=== PATIENT | female | born 1945 | race Caucasian/White ===

== ENCOUNTER → 2024-10-31 | Outpatient (CLI) | payer MEDICARE ==
[2024-10-31 15:32] LABS: Blood Urea Nitrogen 17.2 mg/dL (9.0-27.0); Carbon Dioxide 26.8 mmol/L (21.6-31.8); Chloride 100 mmol/L (96-109); Potassium 4.5 mmol/L (3.5-5.5); Sodium 135 mmol/L (135-145)
[2024-10-31 15:47] LABS: HCT 45.4 % (37.2-46.3); MCH 28.3 pg (27.0-32.0); MCHC 30.8 g/dL (32.0-37.0); MCV 91.7 FL (80.0-97.0); Mean Platelet Volume 10.8 FL (9.5-12.2); NRBC Per 100 WBC 0 X 10*3/uL (0.00-0.01); Platelet Count 288 X 10*3/uL (140-440); RBC 4.95 X 10*6/uL (4.10-5.20); RDW 13.7 % (11.5-14.5); WBC 7.47 X 10*3/uL (4.50-10.00)
== END | disposition home or self-care (01) ==
LOC: LABPAT 10:34
PROVIDERS: ATTEND Internal Medicine Interventional Cardiology
DX: Z01.812 Encounter for preprocedural laboratory examination (principal); I35.0 Nonrheumatic aortic (valve) stenosis
CPT/HCPCS: 36415; 80051; 82565; 84520; 85027

== ENCOUNTER 2024-11-03 06:15 | Day surgery (SDC) | payer MEDICARE ==
[~2024-11-03 06:15] MED LIST: ALPRAZolam 0.5 MG TAB PO PRN; NITROGLYCERIN SL TABS 0.4 MG TAB SUBLINGUAL PRN
[2024-11-03] MEDS: SODIUM CHLORIDE 0.9% 1,000 ML in EMPTY BAG 1 BAG IV SCH (06:49)
[2024-11-03] MEDS: IV FLUID CONTINUATION 1,000 ML IV ONE ×2 (07:39→07:52)
[2024-11-03] MEDS: MIDAZOLAM 2 MG/2 ML VIAL IVP ONE (07:45)
[2024-11-03] MEDS: BENZOCAINE SPRAY 1 EACH MM ONE (07:51)
[2024-11-03] MEDS: HEPARIN SODIUM,PORCINE 10,000 UNIT in SODIUM CHLORIDE 0.9% 1,000 ML IRRIGATION PRN (07:53)
[2024-11-03] MEDS: HEPARIN SODIUM,PORCINE (1 ML) 2,500 UNIT in SODIUM CHLORIDE 0.9% 250 ML IRRIGATION PRN (07:53)
[2024-11-03] MEDS: fentaNYL (PF) 50 MCG/ML 2 ML AMP IVP ONE (07:59)
[2024-11-03] MEDS: LIDOCAINE 1% INJ 10MG/ML (20 ML MDV) SQ ONE (08:00)
--- NOTE | 2024-11-03 08:14 | P.PCN ---
Date of Procedure: 11/03/24 Operative Findings: TRANSESOPHAGEAL ECHOCARDIOGRAM COMPUTER FORENSICS TECHNICIAN: DENAE SONG MD, RPVI INDICATION: Aortic stenosis SEDATION: Conscious sedation COMPLICATION: None LEVEL OF SEDATION Moderate with sedation length of 16 minutes PROCEDURE DESCRIPTION: After obtaining an informed consent, the patient was brought to transesophageal echocardiogram room. Pulse oximetry and heart monitors were attached to the patient. The patient throat was sprayed using lidocaine. The patient was turned into left lateral position. After that a bite guard was placed. After an appropriate conscious sedation was initiated, the transesophageal echocardiogram was advanced through a bite guard into the mid esophagus. A 2-D echocardiogram images, color Doppler images, continuous wave images, pulse-wave images, of various cardiac structure were performed. After that the transesophageal echocardiogram probe was advanced into the stomach and fixed to obtain transgastric view was. The probe was brought into the mid esophagus. Inter-atrial septum was interrogated using 2D images, color Doppler images, and then contrast study. After that transesophageal echocardiogram was withdrawn out and upon withdrawing the descending thoracic aorta all the way up to the arch was evaluated. CONCLUSION: 1. Impaired LV function with EF around 40% with global hypokinesia 2. Moderate to severe mitral regurgitation with severe left atrial enlargement 3. Aortic sclerosis with severe aortic stenosis and mean gradient of 40 mmHg 4. Moderate to severe tricuspid regurgitation 5. Intact interatrial septum 6. Intact left atrial appendage
[2024-11-03] MEDS: HEPARIN SODIUM 1,000 UN/ML (10ML VL) IV ONE (08:35)
[2024-11-03] MEDS: IOPAMIDOL-370 100ML BTL INJ ONE ×2 (08:57→09:24)
[2024-11-03] MEDS: TICAGRELOR 90 MG TAB PO ONE (08:57)
[2024-11-03] MEDS ORDERED: BENZONATATE 100 MG CAP PO PRN (09:15)
[2024-11-03] MEDS ORDERED: ATROPINE SULFATE 0.1 MG/ML 10ML SYRINGE IV PRN (09:15)
[2024-11-03] MEDS ORDERED: MAG HYDROX/AL HYDROX/SIMETH 30 ML CUP PO PRN (09:15)
[2024-11-03] MEDS ORDERED: ZOLPIDEM 5 MG TAB PO PRN (09:15)
[2024-11-03] MEDS ORDERED: RX INFO: IV CONTRAST WAS GIVEN 1 EACH MISC MISCELLANE PRN (09:15)
[2024-11-03] MEDS ORDERED: ALPRAZolam 0.25 MG TAB PO PRN (09:15)
[2024-11-03] MEDS ORDERED: NITROGLYCERIN SL TABS 0.4 MG TAB SUBLINGUAL PRN (09:15)
--- NOTE | 2024-11-03 09:26 | P.PCN ---
Date of Procedure: 11/03/24 Operative Findings: CARDIAC CATHETERIZATION AND PERCUTANEOUS CORONARY INTERVENTION PERFORMING PHYSICIAN: Lauro Rain MD, [facility] PROCEDURE PERFORMED: 1. Selective right and left coronary angiogram 2. Left heart catheterization and right heart catheterization 3. Successful stenting of mid LAD using 4.5 x 23 Xience ASHLEY with an excellent angiographic results with adjunctive use of IVUS and IFR 4. Ultrasound-guided access of the right radial artery INDICATION: Symptomatic 79-year-old female patient with evidence of aortic stenosis by echocardiogram COMPLICATION: None APPROACH: Right radial artery LEVEL OF SEDATION: Moderate with the sedation time off 40 minutes PROCEDURE DESCRIPTION: After obtaining informed consent the patient was brought to the cardiac Instant Powder Supervisor with right radial artery was cannulated using micropuncture technique under ultrasound guidance a micropuncture wire passed easily then I placed a 6 Belarusian 11 cm sheath at the right radial artery and the patient was given 2 mg of verapamil intra-arterial and 5000 units of heparin intravenous. Subsequently right heart catheterization was performed using 6 Belarusian Franklin catheter from the right arm. We did after that left heart catheterization using an AL-1 catheter and straight wire. After that selective right and left coronary angiogram performed using JR4 and JL 4.5 catheters. After that I decided to do an IFR of the LAD with after zeroing the Doppler wire and equalizing between the Dobler wire and the catheter which was she JL 4.5 guiding catheter the left main was engaged and subsequently it was wired with IFR came in to be at 0.87 and at that point I decided to intervene on the LAD. I did wired the LAD using a run- through wire. Intravascular ultrasound was performed and showed a diameter around 4 mm to 4.5 mm not very calcified vessel. Predilatation was performed using 3.5 mm balloon before I deployed 4.5 x 23 mm stent where the stent was positioned under fluoroscopy guidance and deployed under fluoroscopy guidance with final angiogram showed that the stent was not well opposed. I postdilated using 4 mm initially and subsequently 4.5 mm noncompliant balloon. Final angiogram showed excellent angiographic results and the procedure was completed with no complication SELECTIVE CORONARY ANGIOGRAM: The right coronary artery: Large-caliber vessel and a dominant vessel appears to be angiographically normal Left main: Is angiographically normal The left circumflex: Large-caliber vessel nondominant vessel with mild to moderate disease involving the distal portion The left anterior descending artery: Has intermediate to severe lesion involving the midportion documented to be flow-limiting by Doppler wire with IFR of 0.87. HEMODYNAMICS: Pulmonary capillary wedge pressure was 32 mmHg PA pressures were as follows systolic of 60 and diastolic of 25 and mean of 37 mmHg The RV pressures were as follows systolic of 60 mmHg and end-diastolic of 26 mmHg RA pressure was 5 mmHg Cardiac output was 5.09 L/min Aortic valve area was 0.63 cm with an indexed area of 0.33 cm/m CONCLUSION: 1. Severe disease involving the mid LAD documented to be flow-limiting by Doppler wire. I did perform PCI of the LAD as described above 2. Severe aortic stenosis documented by gradient across the valve and also by area as described above. The aortic valve area was 0.63 cm and index area of 0.33 cm/m. The mean aortic valve gradient was 56 mmHg 3. Severe pulmonary hypertension 3. Elevated biventricular filling pressures POSTPROCEDURE MANAGEMENT: 1. Dual antiplatelet therapy using aspirin and Brilinta for at least 6 month 2. Aggressive cholesterol control 3. Follow-up with the patient
[2024-11-03] MEDS: ASPIRIN 325 MG TAB PO ONE (16:29)
[2024-11-03] MEDS: FUROSEMIDE 20 MG TAB PO SCH (16:29)
[2024-11-03 20:20] VITALS: TEMP 97.6
[2024-11-03] MEDS: TICAGRELOR 90 MG TAB PO SCH (20:24)
[2024-11-04 05:14] LABS: African American GFR (CKD) >90 (>60 ml/min/1.73 sqM); Non-African American GFR(CKD) 85 (>60 ml/min/1.73 sqM)
[2024-11-04] MEDS: SODIUM CHLORIDE 0.9% 1,000 ML in EMPTY BAG 1 BAG IV SCH (06:40)
[2024-11-04 07:50] VITALS: BP 117/54; PULSE 78; RESP 16
[2024-11-04] MEDS: ASPIRIN 81 MG PO SCH (08:23)
[2024-11-04] MEDS: ATORVASTATIN 40 MG TAB PO SCH (08:24)
[2024-11-04] MEDS: ALPRAZolam 0.25 MG TAB PO PRN (08:29)
[2024-11-04] MEDS ORDERED: ASPIRIN 81 MG PO SCH (09:00)
[2024-11-04 13:28] VITALS: BMI 32.7
--- NOTE | 2024-11-04 13:44 | P.DS ---
Providers Attending physician: Lauro Rain Consults: 11/03/24 09:15 Consult Physician Routine Consulting Provider: [facility] Consult Reason/Comments: Post Interventional Patient Do you want consulting provider notified?: Already Contacted Primary care physician: Charli Rhodes [facility] Course: This is a 79-year-old female who usually follows in the office with Dr. Zhu. Patient underwent cardiac catheterization yesterday with Dr. Rain with stenting of the mid LAD. Patient also underwent KWABENA revealing impaired LV function with EF around 40% with global hypokinesia, moderate to severe MR with severe left atrial enlargement, aortic sclerosis with severe aortic stenosis with mean gradient 40 mmHg, moderate to severe tricuspid regurgitation, intact intra- atrial septum and intact left atrial appendage. Patient is doing well postprocedure with no complications noted. Patient without complaints of chest pain or shortness of breath. Vital signs are stable. She was deemed stable for discharge home today from a cardiac standpoint. Patient will be continued on dual antiplatelet therapy with the form of aspirin and Brilinta for 12 months. She is to continue statin therapy with LDL goal less than 70. Please see EMR for further hospital course details. Discharge diagnosis #1 coronary artery disease status post stenting of the mid LAD Severe aortic stenosis Nurse practitioner note has been reviewed by physician. Signing provider agrees with the documented findings, assessment, and plan of care documented by TECHNOLOGY APPLICATIONS CONSULTANT as a scribe. Patient Condition at Discharge: Good Plan - Discharge Summary Discharge Rx Participant: No New Discharge Prescriptions: New Ticagrelor [Brilinta] 90 mg PO BID #60 tab Continue Rosuvastatin Calcium 20 mg PO DAILY Benzonatate [Tessalon Perle] 200 mg PO DAILY PRN MDD tx for 7 days PRN Reason: Cough Furosemide [Lasix] 20 mg PO Q3D ALPRAZolam [Xanax] 0.25 mg PO BID PRN PRN Reason: Anxiety Albuterol Inhaler [Ventolin Hfa Inhaler] 1 - 2 puff INHALATION Q6H PRN PRN Reason: Wheezing Aspirin 81 mg PO DAILY Discharge Medication List ALPRAZolam [Xanax] 0.25 mg PO BID PRN 10/27/24 [History] Albuterol Inhaler [Ventolin Hfa Inhaler] 1 - 2 puff INHALATION Q6H PRN 10/27/24 [History] Aspirin 81 mg PO DAILY 12/26/24 [History] Benzonatate [Tessalon Perle] 200 mg PO DAILY PRN MDD tx for 7 days 10/27/24 [History] Furosemide [Lasix] 20 mg PO Q3D 10/27/24 [History] Rosuvastatin Calcium 20 mg PO DAILY 10/27/24 [History] Ticagrelor [Brilinta] 90 mg PO BID #60 tab 11/04/24 [Rx] Follow up Appointment(s)/Referral(s): Lauro Rain MD [STAFF PHYSICIAN] - 11/10/24 10:30 am (Patient of Dr. Zhu- Appointment at the Main Office on with Yara) Patient Instructions/Handouts: *Surgery [facility] - After Heart Catheterization - Windows Security Analyst Instructions, Heart Catheterization (DC), Heart Catheterization (GEN) Activity/Diet/Wound Care/Special Instructions: FOLLOW UP DIRECTED, SOONER FOR WORSENING SYMPTOMS, PROBLEMS OR CONCERNS. NO FLEXING AT THE WRIST OR LIFTING ANYTHING HEAVIER THAN 5 POUNDS FOR 5 DAYS REMOVE ANY DRESSING OVER PUNCTURE SITE AND LEAVE OPEN TO AIR. MAY SHOWER WITH SOAP AND WATER BUT DO NOT SUBMERGE PUNCTURE SITES IN WATER FOR 3 DAYS (including dish cali water) IF SITE BLEEDS, HOLD PRESSURE FOR 10MIN, IF DOESN'T SUBSIDE CALL EMS OR HAVE SOMEONE DRIVE YOU TO ER WATCH EXTREMITY FOR NUMBNESS, COLOR CHANGE, OR CHANGE IN TEMPERATURE TO R ARM/HAND Discharge Disposition: HOME SELF-CARE
== END 2024-11-04 13:03 | disposition home or self-care (01) ==
LOC: CATHCVL 06:15 → 6NMEDSUR 09:18 → CATHCVL 11-04 13:03
PROVIDERS: ATTEND Internal Medicine Interventional Cardiology
DX: I25.10 Atherosclerotic heart disease of native coronary artery without angina pectoris (principal); I08.3 Combined rheumatic disorders of mitral, aortic and tricuspid valves; I27.20 Pulmonary hypertension, unspecified; I49.3 Ventricular premature depolarization; Z79.82 Long term (current) use of aspirin; Z79.899 Other long term (current) drug therapy
CPT/HCPCS: 93312; 93320; 93325; 92978; 93460; 93799; 82565; C9600; C1769 ×5; C1887; C1894; C1751; C1753; C1874; C1725 ×3; J2250; J1644 ×3; J2003; J3010; Q9967

== ENCOUNTER → 2024-11-29 | Outpatient (CLI) | payer MEDICARE ==
[2024-11-29 09:59] LABS: Basophils % (A) 1 %; Eosinophils # (A) 0.2 k/uL (0-0.7); Eosinophils % (A) 2 %; HCT 42.8 % (34.0-46.0); HGB 13.3 gm/dL (11.4-16.0); Lymphocytes # (A) 1.3 k/uL (1.0-4.8); Lymphocytes % (A) 16 %; MCH 28.2 pg (25.0-35.0); MCHC 31.1 g/dL (31.0-37.0); MCV 90.6 fL (80.0-100.0); Mean Platelet Volume 8.1; Monocytes # (A) 0.5 k/uL (0-1.0); Monocytes % (A) 6 %; Neutrophils # (A) 6.1 k/uL (1.3-7.7); Neutrophils % (A) 75 %; Platelet Count 228 k/uL (150-450); RBC 4.72 m/uL (3.80-5.40); RDW 13.1 % (11.5-15.5); WBC 8.1 k/uL (3.8-10.6)
[2024-11-29 10:03] LABS: Appearance,Urine Clear (Clear); Bilirubin,Urine Negative (Negative); Blood,Urine Negative (Negative); Color,Urine Light Yellow; Glucose,Urine (UA) Negative (Negative); Ketones,Urine Negative (Negative); Leukocyte Esterase,Urine Trace (Negative); Nitrite,Urine Negative (Negative); PH, Urine 6.5 (5.0-8.0); Protein,Urine Negative (Negative); RBC,Urine <1 /hpf (0-5); Specific Gravity,Urine 1.019 (1.001-1.035); Squamous Epithelial Cell,Urine 1 /hpf (0-4); Urobilinogen,Urine <2.0 mg/dL (<2.0); WBC,Urine 2 /hpf (0-5)
[2024-11-29 10:09] LABS: Partial Thromboplastin Time 23.8 sec (22.0-30.0); Prothrombin Time 11.1 sec (10.0-12.5)
[2024-11-29 10:14] LABS: ALT 13 U/L (4-34); AST 22 U/L (14-36); African American GFR (CKD) >90 (>60 ml/min/1.73 sqM); Albumin 4.1 g/dL (3.5-5.0); Albumin/Globulin Ratio 1.4; Alkaline Phosphatase 41 U/L (38-126); Anion Gap 5 mmol/L; Blood Urea Nitrogen 20 mg/dL (7-17); Calcium 9.4 mg/dL (8.4-10.2); Carbon Dioxide 32 mmol/L (22-30); Chloride 103 mmol/L (98-107); Globulin 2.9 g/dL; Glucose 114 mg/dL (74-99); Non-African American GFR(CKD) 84 (>60 ml/min/1.73 sqM); Potassium 5.1 mmol/L (3.5-5.1); Sodium 140 mmol/L (137-145)
[2024-11-29 10:21] LABS: NT-Pro-B-Type Natriuretic Pept 4380 pg/mL
--- NOTE | 2024-11-29 11:25 | US ---
EXAMINATION TYPE: US carotid duplex BILAT DATE OF EXAM: 11/29/2024 COMPARISON: NONE CLINICAL INDICATION: Female, 79 years old with history of R55 SYNCOPE; Additional History: .... TECHNIQUE: Grayscale, color Doppler and spectral Doppler evaluation of the bilateral carotid systems and vertebral arteries. Indirect Doppler criteria was utilized. FINDINGS: EXAM MEASUREMENTS: RIGHT: Peak Systolic Velocity (PSV) cm/sec ----- Right CCA: 87.2 ----- Right ICA: 76.7 ----- Right ECA: 56.4 ICA/CCA ratio: 0.9 RIGHT: End Diastole cm/sec ----- Right CCA: 11.9 ----- Right ICA: 23.9 ----- Right ECA: 7.0 LEFT: Peak Systolic Velocity (PSV) cm/sec ----- Left CCA: 45.9 ----- Left ICA: 75.8 ----- Left ECA: 53.6 ICA/CCA ratio: 1.7 LEFT: End Diastole cm/sec ----- Left CCA: 10.3 ----- Left ICA: 26.7 ----- Left ECA: 7.4 VERTEBRALS (direction of flow): Right Vertebral: Antegrade Left Vertebral: Antegrade Rhythm: Normal BIOLOGICAL PHOTOGRAPHER NOTES: Slightly limited exam due to vessel tortuosity Bilateral plaque seen in Bulbs No elevated velocities or significant stenosis seen bilaterally IMPRESSION: No hemodynamically significant internal carotid artery stenosis on either side. Criteria for Assigning % of Stenosis / Diameter reduction (Estimation based on the indirect measurements of the internal carotid artery velocities (ICA PSV). 1. Normal (no stenosis)=ICA PSV < 125 cm/s: ratio < 2.0: ICA EDV<40 cm/s. 2. Less than 50% stenosis=ICA PSV < 125 cm/s: ratio < 2.0: ICA EDV<40 cm/s. 3. 50 to 69% stenosis=ICA PSV of 125 to 230 cm/s: ration 2.0 ? 4.0: ICA EDV 40-100 cm/s. 4. Greater than 70% stenosis to near occlusion= ICA PSV > 230 cm/s: ratio > 4.0: ICA EDV > 100 cm/s. 5. Near occlusion= ICA PSV velocities may be low or undetectable: variable ratio and ICA EDV. 6. Total occlusion=unable to detect flow. [facility], , 11/29/2024 11:23 AM
--- NOTE | 2024-11-29 12:37 | CT ---
EXAMINATION TYPE: CT TAVR Planning DATE OF EXAM: 11/29/2024 COMPARISON: None CLINICAL INDICATION: Female, 79 years old with history of I35.0 NONRHEUMATIC AORTIC (VALVE) STENOSIS; PRE OP TAVR. TECHNIQUE: CT scan of the Neck, chest, abdomen and pelvis is performed with IV contrast; Helical imaging obtaine d through the chest, abdomen and pelvis during arterial phase dynamic administration of radiographic contrast intravenously. CONTRAST: 140ml mL of Isovue 370. CT DLP: 2257.40 mGycm, Automated exposure control for dose reduction was used. FINDINGS: See report from [employer] regarding preprocedural planning NECK AND THYROID: 7 asymmetric positioning and nodularity of the left vocal fold, axial images 26 thr ough 28. Direct visualization recommended. The carotid bifurcations are patent but with moderate athe rosclerotic calcifications on the right and mild on the left. HEART AND PERICARDIUM: Heart mildly enlarged without pericardial effusion. Prominent LAD coronary art melva calcifications. AV Calcification Severity: Moderate to severe ARTERIAL VASCULATURE: The thoracic aorta is normal in course and caliber. There is no evidence of aortic dissection, aneury sm or acute aortic injury. Great arch vessels patent and normal in course and caliber. Mild scattere d atherosclerotic calcifications at the aortic arch and descending thoracic aorta. Scattered mild-to- moderate within the abdominal aorta and common iliac arteries. PULMONARY ARTERIAL VASCULATURE: Large caliber of the main right and left pulmonary arteries up to 3.1 cm suggesting underlying pulmonary arterial hypertension. CHEST: LUNGS: Septal lines throughout along with some mosaic attenuation. LARGE AIRWAYS: Moderate diffuse bronchial wall thickening. PLEURAL: No pleural effusion. MEDIASTINUM AND ALANIS: Some prominent but nonenlarged mediastinal lymph nodes measuring up to 8 mm. SOFT TISSUES/LYMPH NODES: Unremarkable.Normal. MUSCULOSKELETAL: DISH involving the mid to lower thoracic spine. Accentuated mid thoracic kyphosis. ABDOMEN/PELVIS: Please note arterial phase of the imaging limits detailed evaluation of the solid abdominal organs. ABDOMEN LIVER: Unremarkable GALLBLADDER AND BILE DUCTS: Unremarkable. PANCREAS: Unremarkable. SPLEEN: Unremarkable. ADRENAL GLANDS: Unremarkable. KIDNEYS AND URETERS: Bilateral renal cortical cysts measuring up to 2.7 cm. Symmetric excretion of co ntrast from both sites. PELVIS BLADDER: Limited assessment due to extensive metal artifact from the patient's hip replacements. REPRODUCTIVE: Not adequately visualized due to metal artifact.. ABDOMEN & PELVIS STOMACH AND BOWEL: No evidence of bowel obstruction. Sigmoid diverticulosis. No pericolonic inflammat ory changes seen. PERITONEUM/RETROPERITONEUM: No evidence of pneumoperitoneum or free fluid. VASCULATURE: No evidence of aortic aneurysm. MUSCULOSKELETAL: Moderate to severe spondylotic changes lumbar spine. LYMPH NODES: No gross evidence for lymphadenopathy. SOFT TISSUE/ABDOMINAL WALL: Unremarkable Other Lines/Tubes/Devices/Hardware: None IMPRESSION: 1. Moderate to severe calcifications of the aortic valve. 2. Some asymmetry in nodularity to the left vocal fold. Recommend direct visualization to exclude a polyp or neoplasm. 3. Mild cardiomegaly, pulmonary arterial hypertension, and scattered septal lines. Correlate to excl ude mild fluid overload. 4. Sigmoid diverticulosis. 5. DISH mid and lower thoracic spine. Moderate to advanced spondylotic change throughout the lumbar spine. 6. See report from [email or web address] regarding preprocedural planning [facility], , 11/29/2024 12:35 PM
--- NOTE | 2024-11-29 13:07 | XR ---
EXAMINATION TYPE: XR chest 2V DATE OF EXAM: 11/29/2024 1:02 PM COMPARISON: None CLINICAL INDICATION: Female, 79 years old with history of PRE SURGICAL TESTING - TAVR PT., , TECHNIQUE: PA and lateral views FINDINGS: Heart mildly enlarged. Diffuse interstitial opacities without jai consolidation or pleural effusion . IMPRESSION: Correlate for CHF with pulmonary vascular congestion. [facility], Workstation: [id number], 11/29/2024 1:05 PM
[2024-11-29 17:50] LABS: Hepatitis A Antibody IgM Nonreactive (Nonreactive); Hepatitis C IgG Antibody Nonreactive (Nonreactive)
[2024-11-29 17:51] LABS: Hepatitis B Core IgM Nonreactive (Nonreactive); Hepatitis B Surface Antigen Nonreactive (Nonreactive)
[2024-11-29 19:53] LABS: Chol/HDL Ratio 2.15 Ratio; LDL Cholesterol,Calculated 60.5 mg/dL (0.0-131.0); VLDL Calculation 14.42 mg/dL (5.00-40.00)
== END | disposition home or self-care (01) ==
LOC: LABWHC1 09:06
PROVIDERS: ATTEND Thoracic Surgery (Cardiothoracic Vascular Surgery)
DX: Z01.818 Encounter for other preprocedural examination (principal); I35.0 Nonrheumatic aortic (valve) stenosis; I35.1 Nonrheumatic aortic (valve) insufficiency; E78.5 Hyperlipidemia, unspecified; E87.8 Other disorders of electrolyte and fluid balance, not elsewhere classified; E07.9 Disorder of thyroid, unspecified; E11.9 Type 2 diabetes mellitus without complications; N28.9 Disorder of kidney and ureter, unspecified; R58 Hemorrhage, not elsewhere classified; R35.0 Frequency of micturition; R55 Syncope and collapse; Z79.01 Long term (current) use of anticoagulants; Z79.899 Other long term (current) drug therapy
CPT/HCPCS: 83880; 80061; 80053; 80074; 84443; 83735; 85025; 85610; 85730; 81001; 87086; 83036; 71046; 93880; 71275; 36415 ×2; 74174; Q9967

== ENCOUNTER 2024-12-24 10:12 | Emergency (ER) | payer MEDICARE ==
--- NOTE | 2024-12-24 11:28 | ED ---
SOB HPI - General Chief Complaint: Shortness of Breath Stated Complaint: Cough,SOB Time Seen by Provider: 12/24/24 11:25 Source: patient, family, RN notes reviewed Mode of arrival: ambulatory - History of Present Illness Initial Comments: Patient is a 79-year-old female presented to the ER for evaluation of cough and congestion Patient reports she is scheduled to have aortic valve replacement on Thursday with . She states for the past 48 to 72 hours she has had a productive cough with yellow phlegm and congestion along with runny nose. Patient also reports mild fevers. Patient states she will cough so hard it makes her short of breath. She denies any chest pain, dizziness, lightheadedness, nausea, vomiting. Patient states she was seen by PCP yesterday and started on Augmentin. She has taken 2 doses of this. Patient denies home O2 use, peripheral edema, history of COPD/asthma, heart failure or smoking. She has not tried any medications [id number]. No other complaints at this time. - Related Data Home Medications Medication Instructions Recorded Confirmed ALPRAZolam [Xanax] 0.25 mg PO BID PRN 10/27/24 12/20/24 Albuterol Inhaler [Ventolin Hfa 1 - 2 puff INHALATION Q6H PRN 10/27/24 12/20/24 Inhaler] Aspirin 81 mg PO DAILY 10/27/24 12/20/24 Benzonatate [Tessalon Perle] 200 mg PO DAILY PRN 10/27/24 12/20/24 Furosemide [Lasix] 20 mg PO Q3D 10/27/24 12/20/24 Rosuvastatin Calcium 20 mg PO DAILY 10/27/24 12/20/24 Clopidogrel [Plavix] 75 mg PO DAILY 12/20/24 12/20/24 carvediloL [Coreg] 3.125 mg PO BID 12/20/24 12/20/24 lisinopriL [Zestril] 2.5 mg PO DAILY 12/20/24 12/20/24 Allergies Allergy/AdvReac Type Severity Reaction Status Date / Time No Known Allergies Allergy Verified 12/24/24 10:34 Review of Systems ROS Statement: Those systems with pertinent positive or pertinent negative responses have been documented in the HPI. ROS Other: All systems not noted in ROS Statement are negative. Past Medical History Past Medical History: Heart Failure, Pneumonia Additional Past Medical History / Comment(s): admitted to [facility] on 10-15-24 thru 10-17-24-Covid testing neg,SOB History of Any Multi-Drug Resistant Organisms: None Reported Past Surgical History: Appendectomy, Heart Catheterization With Stent, Hysterectomy, Joint Replacement Additional Past Surgical History / Comment(s): jemima hip replacement Past Anesthesia/Blood Transfusion Reactions: No Reported Reaction Additional Past Anesthesia/Blood Transfusion Reaction / Comment(s): no hx blood transfusioon Past Psychological History: Anxiety Smoking Status: Never smoker Past Alcohol Use History: None Reported Past Drug Use History: None Reported - Past Family History Mother Family Medical History: No Reported History General Exam Limitations: no limitations General appearance: alert, in no apparent distress ENT exam: Present: normal exam, normal oropharynx, mucous membranes moist, TM's normal bilaterally Respiratory exam: Present: normal lung sounds bilaterally. Absent: respiratory distress, wheezes, rales, rhonchi, stridor Cardiovascular Exam: Present: regular rate, normal rhythm, normal heart sounds. Absent: systolic murmur, diastolic murmur, rubs, gallop, clicks Extremities exam: Present: normal inspection, full ROM, normal capillary refill. Absent: tenderness, pedal edema, joint swelling, calf tenderness Neurological exam: Present: alert, oriented X3, CN II-XII intact Skin exam: Present: warm, dry, intact, normal color. Absent: rash Course Vital Signs 12/24/24 12/24/24 12/24/24 10:28 11:43 12:07 Temperature 98.8 F 99.7 F H Pulse Rate 100 89 Respiratory 20 18 Rate Blood Pressure 137/79 O2 Sat by Pulse 95 Oximetry 12/24/24 12/24/24 12:16 12:30 Temperature 100.1 F H Pulse Rate 94 85 Respiratory 18 18 Rate Blood Pressure 128/74 O2 Sat by Pulse 95 Oximetry Medical Decision Making - Medical Decision Making Was pt. sent in by a medical professional or institution (, PA, PAPER SUPERVISOR, urgent care, hospital, or senior care...) When possible be specific @ -No Did you speak to anyone other than the patient for history (EMS, parent, family, police, friend...)? What history was obtained from this source @ -Patient's daughter, at bedside, aiding in HPI and past medical history. Did you review nursing and triage notes (agree or disagree)? Why? @ -I reviewed and agree with nursing and triage notes Were old charts reviewed (outside hosp., previous admission, EMS record, old EKG, old radiological studies, urgent care reports/EKG's, senior care records)? Report findings @ -No old charts were reviewed Differential Diagnosis (chest pain, altered mental status, abdominal pain women, abdominal pain men, vaginal bleeding, weakness, fever, dyspnea, syncope, hea dache, dizziness, GI bleed, back pain, seizure, CVA, palpatations, mental health, musculoskeletal)? @ -Differential Dyspnea:Coronary syndrome, arrhythmia, tamponade, asthma, COPD, pulmonary embolism, pneumonia, pneumothorax, pulmonary effusion, anaphylaxis, diabetic ketoacidosis, flailed chest, pulmonary contusion, diaphragmatic rupture, anemia, neuromuscular, this is not meant to be an all-inclusive list. EKG interpreted by me (3pts min.). @ -As above X-rays interpreted by me (1pt min.). @ -CXR interpreted by me negative for focal consolidations, pneumothorax or pleural effusions. CT interpreted by me (1pt min.). @ -None done U/S interpreted by me (1pt. min.). @ -None done What testing was considered but not performed or refused? (CT, X-rays, U/S, labs)? Why? @ -None What meds were considered but not given or refused? Why? @ -Tamiflu considered but patient is outside 48 hour symptom onset window. Did you discuss the management of the patient with other professionals (leonidas nixon i.e. , PA, PAPER SUPERVISOR, lab, RT, psych nurse, social media senior associate, poultry picker, teacher, commissioned defence force officer, immigration case worker)? Give summary @ -No Was smoking cessation discussed for >3mins.? @ -No Was critical care preformed (if so, how long)? @ -No Were there social determinants of health that impacted care today? How? (Homelessness, low income, unemployed, alcoholism, drug addiction, transportation, low edu. Level, literacy, decrease access to med. care, intermediate, rehab)? @ -No Was there de-escalation of care discussed even if they declined (Discuss DNR or withdrawal of care, Hospice)? DNR status @ -No What co-morbidities impacted this encounter? (DM, HTN, Smoking, COPD, CAD, Cancer, CVA, ARF, Chemo, Hep., AIDS, mental health diagnosis, sleep apnea, morbid obesity)? @ -None Was patient admitted / discharged? Hospital course, mention meds given and route, prescriptions, significant lab abnormalities, going to OR and other pertinent info. @ -Discharge. 79-year-old female presented to the ER for evaluation of cough and congestion. Upon rooming, history and physical exam completed. Patient with a temperature of 99.7F vitals otherwise within acceptable limits. Patient no signs of acute distress nontoxic-appearing. Laboratory studies obtained unimpressive. Influenza A positive. Chest x-ray negative. Patient given Tylenol for fever control in the ER. Patient also received DuoNeb as she was complaining of cough making her short of breath. She does report improvement of symptoms after this. Patient is stable for discharge at this time. Strict return parameters discussed. Patient discharged in stable condition with follow- up with PCP. Patient verbally expressed understanding and agreement with care plan. Case discussed with ED attending, Dr. Bell. Undiagnosed new problem with uncertain prognosis? @ -No Drug Therapy requiring intensive monitoring for toxicity (Heparin, Nitro, Insulin, Cardizem)? @ -No Were any procedures done? @ -No Diagnosis/symptom? @ -Influenza A/Acute viral sinusitis Acute, or Chronic, or Acute on Chronic? @ -Acute Uncomplicated (without systemic symptoms) or Complicated (systemic symptoms)? @ -Uncomplicated Side effects of treatment? @ -No Exacerbation, Progression, or Severe Exacerbation? @ -No Poses a threat to life or bodily function? How? (Chest pain, [place], [place], pneumonia, PE, COPD, DKA, ARF, appy, cholecystitis, CVA, Diverticulitis, Homicidal, Suicidal, threat to staff... and all critical care pts) @ -Low at this time - Lab Data Result diagrams: 12/24/24 11:33 12/24/24 11:33 Lab Results 12/24/24 12/24/24 12/24/24 Range/Units 10:36 11:33 11:33 WBC 6.5 (3.8-10.6) k/uL RBC 4.36 (3.80-5.40) m/uL Hgb 12.5 (11.4-16.0) gm/dL Hct 39.0 (34.0-46.0) % MCV 89.4 (80.0-100.0) fL MCH 28.7 (25.0-35.0) pg MCHC 32.1 (31.0-37.0) g/dL RDW 13.6 (11.5-15.5) % Plt Count 153 (150-450) k/uL MPV 8.2 Neutrophils % 88 % Lymphocytes % 4 % Monocytes % 5 % Eosinophils % 2 % Basophils % 0 % Neutrophils # 5.7 (1.3-7.7) k/uL Lymphocytes # 0.3 L (1.0-4.8) k/uL Monocytes # 0.3 (0-1.0) k/uL Eosinophils # 0.1 (0-0.7) k/uL Basophils # 0.0 (0-0.2) k/uL Sodium 136 L (137-145) mmol/L Potassium 4.3 (3.5-5.1) mmol/L Chloride 103 (98-107) mmol/L Carbon Dioxide 25 (22-30) mmol/L Anion Gap 8 mmol/L BUN 16 (7-17) mg/dL Creatinine 0.52 (0.52-1.04) mg/dL Est GFR (CKD-EPI)AfAm >90 (>60 ml/min/1.73 sqM) Est GFR (CKD-EPI)NonAf >90 (>60 ml/min/1.73 sqM) Glucose 136 H (74-99) mg/dL Plasma Lactic Acid Eduardo (0.7-2.0) mmol/L Calcium 9.0 (8.4-10.2) mg/dL Total Bilirubin 0.9 (0.2-1.3) mg/dL AST 27 (14-36) U/L ALT 15 (4-34) U/L Alkaline Phosphatase 33 L (38-126) U/L Total Protein 6.7 (6.3-8.2) g/dL Albumin 3.9 (3.5-5.0) g/dL Influenza Type A (PCR) Detected A (Not Detectd) Influenza Type B (PCR) Not Detected (Not Detectd) RSV (PCR) Not Detected (Not Detectd) SARS-CoV-2 (PCR) Not Detected (Not Detectd) 12/24/24 Range/Units 11:33 WBC (3.8-10.6) k/uL RBC (3.80-5.40) m/uL Hgb (11.4-16.0) gm/dL Hct (34.0-46.0) % MCV (80.0-100.0) fL MCH (25.0-35.0) pg MCHC (31.0-37.0) g/dL RDW (11.5-15.5) % Plt Count (150-450) k/uL MPV Neutrophils % % Lymphocytes % % Monocytes % % Eosinophils % % Basophils % % Neutrophils # (1.3-7.7) k/uL Lymphocytes # (1.0-4.8) k/uL Monocytes # (0-1.0) k/uL Eosinophils # (0-0.7) k/uL Basophils # (0-0.2) k/uL Sodium (137-145) mmol/L Potassium (3.5-5.1) mmol/L Chloride (98-107) mmol/L Carbon Dioxide (22-30) mmol/L Anion Gap mmol/L BUN (7-17) mg/dL Creatinine (0.52-1.04) mg/dL Est GFR (CKD-EPI)AfAm (>60 ml/min/1.73 sqM) Est GFR (CKD-EPI)NonAf (>60 ml/min/1.73 sqM) Glucose (74-99) mg/dL Plasma Lactic Acid Eduardo 1.6 (0.7-2.0) mmol/L Calcium (8.4-10.2) mg/dL Total Bilirubin (0.2-1.3) mg/dL AST (14-36) U/L ALT (4-34) U/L Alkaline Phosphatase (38-126) U/L Total Protein (6.3-8.2) g/dL Albumin (3.5-5.0) g/dL Influenza Type A (PCR) (Not Detectd) Influenza Type B (PCR) (Not Detectd) RSV (PCR) (Not Detectd) SARS-CoV-2 (PCR) (Not Detectd) - EKG Data -: EKG Interpreted by Me EKG Comments: EKG taken at 12: 01 showing a sinus rhythm with frequent PVCs. Ventricular rate 95, MT interval 152, QRS duration 99, QT/QTc 336/389 - Radiology Data Radiology results: report reviewed, image reviewed Disposition Clinical Impression: Influenza A, Acute viral sinusitis Disposition: HOME SELF-CARE Condition: Stable Instructions (If sedation given, give patient instructions): Influenza (ED) Additional Instructions: Follow-up with PCP. Return to the ER for any new or worsening concerns Is patient prescribed a controlled substance at d/c from ED?: No Referrals: Charli Rhodes MD [Primary Care Provider] - 1-2 days Time of Disposition: 12:15
--- NOTE | 2024-12-24 11:29 | XR ---
EXAMINATION TYPE: XR chest 2V DATE OF EXAM: 12/24/2024 11:05 AM COMPARISON: 11/29/2024 CLINICAL INDICATION: Female, 79 years old with history of cough and fever and sob, TECHNIQUE: XR chest 2V view(s) obtained. FINDINGS: The heart size is enlarged. The pulmonary vasculature is normal. The lungs are clear. Spondylosis is to thoracic spine IMPRESSION: 1. No acute pulmonary process. 2. Cardiomegaly [facility], , 12/24/2024 11:27 AM
[2024-12-24 11:43] LABS: Basophils % (A) 0 %; Eosinophils # (A) 0.1 k/uL (0-0.7); Eosinophils % (A) 2 %; HGB 12.5 gm/dL (11.4-16.0); Lymphocytes # (A) 0.3 k/uL (1.0-4.8); Lymphocytes % (A) 4 %; MCH 28.7 pg (25.0-35.0); MCHC 32.1 g/dL (31.0-37.0); MCV 89.4 fL (80.0-100.0); Mean Platelet Volume 8.2; Monocytes # (A) 0.3 k/uL (0-1.0); Monocytes % (A) 5 %; Neutrophils # (A) 5.7 k/uL (1.3-7.7); Neutrophils % (A) 88 %; Platelet Count 153 k/uL (150-450); RBC 4.36 m/uL (3.80-5.40); RDW 13.6 % (11.5-15.5); WBC 6.5 k/uL (3.8-10.6)
[2024-12-24 11:48] LABS: Influenza A Detected (Not Detectd); Influenza B Not Detected (Not Detectd); RSV Not Detected (Not Detectd)
[2024-12-24] MEDS: ACETAMINOPHEN TAB 325 MG TAB PO STA (11:48)
[2024-12-24 11:56] LABS: ALT 15 U/L (4-34); AST 27 U/L (14-36); African American GFR (CKD) >90 (>60 ml/min/1.73 sqM); Albumin 3.9 g/dL (3.5-5.0); Alkaline Phosphatase 33 U/L (38-126); Anion Gap 8 mmol/L; Blood Urea Nitrogen 16 mg/dL (7-17); Carbon Dioxide 25 mmol/L (22-30); Chloride 103 mmol/L (98-107); Glucose 136 mg/dL (74-99); Non-African American GFR(CKD) >90 (>60 ml/min/1.73 sqM); Potassium 4.3 mmol/L (3.5-5.1); Sodium 136 mmol/L (137-145); Total Bilirubin 0.9 mg/dL (0.2-1.3); Total Protein 6.7 g/dL (6.3-8.2)
[2024-12-24] MEDS: IPRATROPIUM-ALBUTEROL 3 ML NEB INHALATION STA (12:07)
[2024-12-24 12:10] VITALS: RESP 18
[2024-12-24 12:34] VITALS: BP 128/74; PULSE 85; TEMP 100.1
== END 2024-12-24 12:40 | disposition home or self-care (01) ==
LOC: EC 10:12
DX: J10.1 Influenza due to other identified influenza virus with other respiratory manifestations (principal); J01.90 Acute sinusitis, unspecified
CPT/HCPCS: 36415; 71046; 80053; 83605; 85025; 87636; 93005; 94640; 99285

== ENCOUNTER 2024-12-28 08:00 | Inpatient (IN) | payer MEDICARE ==
[~2024-12-28 08:00] MED LIST changes: -ALPRAZolam 0.5 MG TAB PO PRN; +ASPIRIN 325 MG TAB PO ONE; +ATORVASTATIN 10 MG TAB PO ONE; +CLEVIDIPINE BUTYRATE 25 MG in EMPTY BAG 1 BAG IV PRN; +CLOPIDOGREL 75 MG TAB PO ONE; +ELECTROLYTE-A SOLUTION 1,000 ML with POTASSIUM CHLORIDE 100 MEQ, MAGNESIUM SULFATE 16 M... IV PRN; +INSULIN REGULAR 100 UNIT in SODIUM CHLORIDE 0.9% 100 ML IV PRN; +LACTATED RINGERS 1,000 ML IV SCH; +METOPROLOL TARTRATE 25 MG TAB PO ONE; -NITROGLYCERIN SL TABS 0.4 MG TAB SUBLINGUAL PRN; +NITROGLYCERIN-D5W PMX 25 MG/250 ML BTL IV PRN; +PROTAMINE SULFATE 250 MG in EMPTY BAG 1 BAG IV PRN; +SODIUM CHLORIDE 0.9% 500 ML 500 ML INTRAARTER PRN; +TRANEXAMIC ACID 2,000 MG in SODIUM CHLORIDE 0.9% 80 ML IV PRN
[2025-01-11] MEDS ORDERED: INSULIN REGULAR 100 UNIT in SODIUM CHLORIDE 0.9% 100 ML IV PRN (06:00)
[2025-01-11] MEDS ORDERED: TRANEXAMIC ACID 2,000 MG in SODIUM CHLORIDE 0.9% 80 ML IV PRN (06:00)
[2025-01-11] MEDS ORDERED: ELECTROLYTE-A SOLUTION 1,000 ML with POTASSIUM CHLORIDE 100 MEQ, MAGNESIUM SULFATE 16 M... IV PRN (06:00)
[2025-01-11] MEDS ORDERED: CLEVIDIPINE BUTYRATE 25 MG in EMPTY BAG 1 BAG IV PRN (06:00)
[2025-01-11] MEDS ORDERED: NITROGLYCERIN-D5W PMX 25 MG/250 ML BTL IV PRN (06:00)
[2025-01-11] MEDS ORDERED: PROTAMINE SULFATE 250 MG in EMPTY BAG 1 BAG IV PRN (06:00)
[2025-01-11] MEDS ORDERED: SODIUM CHLORIDE 0.9% 500 ML 500 ML INTRAARTER PRN (06:00)
[2025-01-11 06:28] LABS: Glucose,Whole Blood 112 mg/dL (70-110)
[2025-01-11] MEDS: ASPIRIN 325 MG TAB PO ONE (07:06)
[2025-01-11] MEDS: ATORVASTATIN 10 MG TAB PO ONE (07:07)
[2025-01-11] MEDS: CLOPIDOGREL 75 MG TAB PO ONE (07:07)
[2025-01-11] MEDS: METOPROLOL TARTRATE 25 MG TAB PO ONE (07:07)
[2025-01-11] MEDS: LACTATED RINGERS 1,000 ML IV SCH (07:09)
[2025-01-11] MEDS: IV FLUID CONTINUATION 1,000 ML IV ONE ×2 (07:10→10:07)
[2025-01-11] MEDS ORDERED: MIDAZOLAM 2 MG/2 ML VIAL ONE (07:45)
[2025-01-11] MEDS ORDERED: HEPARIN SODIUM,PORCINE 10,000 UNIT/ML 1 ML VIAL ONE (07:45)
[2025-01-11] MEDS ORDERED: DEXMEDETOMIDINE/0.9% NACL(PMX) 400 MCG/100 ML IV ONE (07:45)
[2025-01-11] MEDS ORDERED: fentaNYL (PF) 50 MCG/ML 2 ML AMP ONE (07:45)
[2025-01-11] MEDS ORDERED: PROTAMINE SULFATE 10 MG/ML 5 ML VIAL ONE (07:45)
[2025-01-11] MEDS: LIDOCAINE 1% INJ 10MG/ML (20 ML MDV) SQ ONE (08:26)
[2025-01-11] MEDS: IOPAMIDOL-370 100ML BTL INJ ONE (09:03)
--- NOTE | 2025-01-11 09:35 | P.OP ---
Date of Procedure: 01/11/25 Preoperative Diagnosis: Symptomatic severe calcific aortic stenosis Postoperative Diagnosis: Same Procedure(s) Performed: Percutaneous transfemoral transcatheter aortic valve replacement via right femoral arterial approach with 26 mm Escoto NITZA 3 valve prosthesis Implants: Escoto Nitza 3 valve prosthesis Anesthesia: GETA Surgeon: Orville Silverio (Cardiovascular surgeon) Black Jack Dealer #1: Lauro Rain (sustainable design coordinator) [employer] [place] Dealer #2: James Quinteros (Physician assistant fitness manager) Estimated Blood Loss (ml): 20 IV fluids (ml): 1,000 Urine output (ml): 0 Pathology: none sent Condition: stable Disposition: PACU Indications for Procedure: 79-year-old obese female with progressive dyspnea. She has longstanding history of COPD. She was found to have significant LAD coronary artery disease as well as severe aortic valvular stenosis. She underwent intervention on the left anterior coronary artery with successful stenting and had minimal improvement in her symptomatology and following this her dyspnea continued to progress. Transcatheter aortic valve replacement was recommended in the high risk valve clinic and she was scheduled but delayed due to acute an episode of influenza. She was electively admitted for procedure at this time. Operative Findings: Femoral access was good. The valve was crossed without too much difficulty. There was a significant gradient across the valve. Valve was deployed without difficulty. There were no evidence of aortic insufficiency on either root injection or transthoracic echocardiography. Valve appeared to be well deployed and well-rounded. There was no evidence of pericardial effusion. Coronary perfusion was maintained. Both groin sealed up without difficulty completion angiography was acceptable. Description of Procedure: Patient was brought to the catheterization laboratory and placed supine on the operating table. She was appropriately positioned prepped and draped. IV sedation was administered. 1% lidocaine was injected in both groins. Bilateral femoral arterial and left femoral venous access was obtained under ultrasound gu idance. In the left femoral artery a long 6 Prydeinig sheath was placed and a pigtail advanced through this into the noncoronary sinus of Valsalva. The left femoral vein and a long 8 Prydeinig sheath was placed and through this a TVP was advanced into the right ventricle and tested. Right femoral artery a 7 Prydeinig sheath was placed and then 2 Perclose devices were placed and an 8 Prydeinig sheath was placed. This was upsized to a 14 Prydeinig E sheath over a stiff wire. Patient was systemically heparinized and ACT is maintained greater than 250. The valve was crossed from the right femoral approach and a pigtail catheter positioned in the apex of the ventricle. Transvalvular gradients were measured. Safari wire was placed at the apex of the ventricle. 26 mm Escoto NITZA 3 ultra had been loaded on the back table and was brought up on the field. It was advanced over the safari wire through the E sheath and into the descending thoracic aorta. The balloon was pulled back into the valve stent. It was then curved around the aortic arch and advanced across the aortic valve. The pusher was pulled back and the valve was appropriately positioned for deployment. The valve was deployed under rapid ventricular pacing with deployment levels of 20 and 80. Valve deployment system was pulled back into the descending thoracic aorta. The pigtail was pulled back into the root of the aorta and root angiography was performed with findings as noted above. Surface echocardiography was performed. Heparin was reversed with protamine. Valve deployment system was pulled out. The safari wire was exchanged for a J-wire and the 14 Prydeinig sheath removed and the 2 Perclose devices sealed the femoral artery well. Completion angiography was normal. Left femoral sheaths were removed and controlled with direct pressure. Patient was transferred to recovery in stable condition.
--- NOTE | 2025-01-11 09:43 | P.PCN ---
Date of Procedure: 01/11/25 Operative Findings: TRANSCATHETER AORITC VALVE REPLACEMENT OPERATIVE REPORT PROCEDURE PERFORMED: 1. Percutaneous Aortic Valve Implantation using a 26 mm Escoto DONNIE valve 2. Transthoracic echocardiogram was performed as well 3. Ultrasound guided access and repair of bilateral femoral artery access site by Perclose closure device on the right and Angio-Seal on the left 4. Placement of temporary pacemaker wire. 5. Aortic root angiography INDICATIONS: 1. 79 year-old with a history of severe symptomatic aortic valve stenosis. The patient was experiencing shortness of breath consistent with NYHA class II PERFORMING PHYSICIANS: 1. Lauro Rain MD Interventional Cardiology. 2. Orville Silverio MD, Cardiothoracic Surgeon. SEDATION: General anesthesia provided by anesthesia, see separate note APPROACH: Bilateral femoral artery via percutaneous approach PROCEDURE DESCRIPTION: The patient was discussed at valve clinic with multidisciplinary approach with cardiothoracic surgeon as well as hall tender and thought better treated with TAVR. Risks, benefits, and alternatives of the procedure had been explained to the patient who understood the risks and agreed to proceed. After consents were obtained, patient was brought to the transcatheter aortic valve implantation room in the cardiac mason tender restoration labor and general anesthesia was provided by the anesthesiologist (see separate report). Once full body sterile prep was performed, the left common femoral vein was cannulated using micropuncture techn ique under ultrasound guidance a micropuncture wire passed easily then a place a 6 Colombian 23 cm sheath at the left common femoral vein. Subsequently the sheath was flushed and secured. After that I did advance under fluoroscopy guidance a balloontipped temporary pacemaker to the right ventricle where the pacer was also secured after the balloon was deflated. Pacing threshholds were checked and deemed appropriate. Next the left femoral artery waw accessed using a modified Seldinger technique, ultrasound guidance and micropuncture technique. A 6 Colombian Rabi sheath was placed in the left femoral artery. Next, a 6-Colombian pigtail catheter was advanced into the aorta and positioned in the aortic root, aortic root angiography was performed to determine optimal deployment angle. The right femoral artery was accessed using modified Seldinger technique, micropuncture technique and under direct ultrasound guidance. Femoral angiogram was done showing access in the common femoral artery and a 6Fr sheath was placed. Next preclose technique was performed using a two Perclose. Next a 0.035 Safari wire was placed in the Aorta via a pigtail catheter. Over the safari wire 14 Fr Escoto sheath was placed. Next a 6F- AL1 catheter was advanced over a wire to the aortic root. A straight wire was advanced through the catheter and used to cross the severely stenotic valve. The AL1 was then e xchanged for a 6Fr pigtail catheter and pressure measurements were obtained. The 0.035 Safari wire was then positioned in the apex. Next a 26 mm Escoto DONNIE valve was was advanced. The valve was then positioned across the aortic valve and confirmed with aortic root angiography. The valve was then deployed in proper position using slow deployment and with rapid pacing in conjuncture with aortic root angiography. The delivery system was withdrawn back into the arch and an aortic root injection in conjunction with TTE demonstrated a satisfactory result. There was no para valvular leak. There was no evidence of any other significant abnormalities. The preclose Perclose was then deployed in the right femoral artery and hemostasis was achieved. I did perform a right common femoral artery angiogram using a rim catheter from the left common femoral artery and that showed no evidence of any extravasation. Left common femoral artery angiogram was also performed and showed good position of the sheath in the left common femoral artery and after that I deployed a 6 Colombian Angio-Seal device at the left common femoral artery. The procedure was completed with no complication COMPLICATIONS: None RECOMMENDATIONS: The patient will be monitored in the ICU for hemodynamic and electrical stability. Patient will be on aspirin and Plavix.
--- NOTE | 2025-01-11 10:04 | XR ---
EXAMINATION TYPE: XR chest 1V portable DATE OF EXAM: 01/11/2025 9:46 AM COMPARISON: Chest radiographs from 11/21/2024 CLINICAL INDICATION: Female, 79 years old with history of post TAVR; [facility] TECHNIQUE: XR chest 1V portable Frontal view of the chest. FINDINGS: Lungs/Pleura: There is no evidence of pleural effusion, focal consolidation, or pneumothorax. Pulmonary vascularity: Unremarkable. Heart/mediastinum: Cardiomediastinal silhouette is enlarged and stable. Post aortic valve repair lizbeth nges. Musculoskeletal: No acute osseous pathology. IMPRESSION: Cardiomegaly with aortic valve repair changes without significant pulmonary edema. [facility], , 01/11/2025 10:02 AM
[2025-01-11 10:06] LABS: HCT 36.3 % (34.0-46.0); HGB 11.2 gm/dL (11.4-16.0); MCH 27.8 pg (25.0-35.0); MCHC 30.9 g/dL (31.0-37.0); MCV 89.9 fL (80.0-100.0); Mean Platelet Volume 7.6; Platelet Count 237 k/uL (150-450); RBC 4.04 m/uL (3.80-5.40); RDW 13.2 % (11.5-15.5); WBC 9.6 k/uL (3.8-10.6)
[2025-01-11 10:22] LABS: African American GFR (CKD) >90 (>60 ml/min/1.73 sqM); Anion Gap 5 mmol/L; Blood Urea Nitrogen 17 mg/dL (7-17); Calcium 8.1 mg/dL (8.4-10.2); Carbon Dioxide 27 mmol/L (22-30); Chloride 105 mmol/L (98-107); Glucose 146 mg/dL (74-99); Non-African American GFR(CKD) >90 (>60 ml/min/1.73 sqM); Sodium 137 mmol/L (137-145)
[2025-01-11] MEDS: ALBUMIN HUMAN 5% 250 ML in EMPTY BAG 1 BAG IVPB STA (10:24)
[2025-01-11] MEDS ORDERED: Potassium Replacement Protocol 1 EACH MISC MISCELLANE PRN (11:57)
[2025-01-11] MEDS ORDERED: IPRATROPIUM-ALBUTEROL 3 ML NEB INHALATION PRN (11:57)
[2025-01-11] MEDS ORDERED: CALCIUM GLUCONATE IN NACL 2 GM in SALINE 1 100ML.BAG IVPB PRN (11:57)
[2025-01-11] MEDS ORDERED: Magnesium Replacement Protocol 1 EACH MISC MISCELLANE PRN (11:57)
[2025-01-11] MEDS ORDERED: ONDANSETRON 4 MG/2 ML VIAL IVP PRN (11:57)
[2025-01-11] MEDS: SODIUM CHLORIDE 0.9% 1,000 ML IV SCH ×2 (15:47→17:34)
[2025-01-11] MEDS: carvediloL 3.125 MG TAB PO SCH (17:13)
[2025-01-11] MEDS: ALPRAZolam 0.25 MG TAB PO PRN (18:45)
[2025-01-11] MEDS: ACETAMINOPHEN TAB 325 MG TAB PO PRN (18:45)
[2025-01-11] MEDS: SENNOSIDES-DOCUSATE SODIUM 1 EACH TAB PO SCH (20:13)
[2025-01-11] MEDS: HEPARIN SODIUM,PORCINE 5,000 UNIT/ML 1 ML VIAL SQ SCH (23:29)
[2025-01-12] MEDS: PANTOPRAZOLE 40 MG TABLET PO SCH (06:29)
--- NOTE | 2025-01-12 08:19 | XR ---
EXAMINATION TYPE: XR chest 1V portable DATE OF EXAM: 01/12/2025 6:49 AM COMPARISON: Chest radiographs from 01/11/2025. CLINICAL INDICATION: Female, 79 years old with history of Post Operative Cardiac Surgery; [facility] TECHNIQUE: XR chest 1V portable Frontal view of the chest. FINDINGS: Lungs/Pleura: There is no evidence of pleural effusion, focal consolidation, or pneumothorax. Pulmonary vascularity: Unremarkable. Heart/mediastinum: Cardiomediastinal silhouette is enlarged and stable. Post aortic valve repair lizbeth nges. Musculoskeletal: No acute osseous pathology. IMPRESSION: Cardiomegaly with aortic valve repair changes without significant pulmonary edema. [facility], , 01/12/2025 8:17 AM
[2025-01-12] MEDS: ATORVASTATIN 40 MG TAB PO SCH (08:46)
[2025-01-12] MEDS: CLOPIDOGREL 75 MG TAB PO SCH (08:46)
[2025-01-12] MEDS: ASPIRIN 81 MG PO SCH (08:47)
[2025-01-12] MEDS ORDERED: MAGNESIUM HYDROXIDE 2,400 MG/30 ML CUP PO PRN (09:00)
[2025-01-12] MEDS ORDERED: bisacodyL 10 MG SUPP RECTAL PRN (09:00)
[2025-01-12 09:04] LABS: Basophils % (A) 0 %; Eosinophils # (A) 0.1 k/uL (0-0.7); Eosinophils % (A) 1 %; HCT 35.6 % (34.0-46.0); Lymphocytes # (A) 0.9 k/uL (1.0-4.8); Lymphocytes % (A) 9 %; MCH 28.1 pg (25.0-35.0); MCV 90.6 fL (80.0-100.0); Mean Platelet Volume 7.8; Monocytes # (A) 0.6 k/uL (0-1.0); Monocytes % (A) 7 %; Neutrophils % (A) 82 %; Platelet Count 191 k/uL (150-450); RBC 3.92 m/uL (3.80-5.40); RDW 13.7 % (11.5-15.5); WBC 9.7 k/uL (3.8-10.6)
[2025-01-12 09:07] LABS: AST 25 U/L (14-36); African American GFR (CKD) >90 (>60 ml/min/1.73 sqM); Albumin 3.4 g/dL (3.5-5.0); Alkaline Phosphatase 35 U/L (38-126); Anion Gap 12 mmol/L; Blood Urea Nitrogen 13 mg/dL (7-17); Calcium 8.5 mg/dL (8.4-10.2); Carbon Dioxide 21 mmol/L (22-30); Chloride 102 mmol/L (98-107); Glucose 195 mg/dL (74-99); Magnesium 1.9 mg/dL (1.6-2.3); Non-African American GFR(CKD) >90 (>60 ml/min/1.73 sqM); Sodium 135 mmol/L (137-145); Total Bilirubin 1.1 mg/dL (0.2-1.3); Total Protein 5.9 g/dL (6.3-8.2)
[2025-01-12 09:15] LABS: ALT 21 U/L (4-34)
[2025-01-12 10:05] VITALS: RESP 18; TEMP 98.3
[2025-01-12 12:14] VITALS: BP 117/74; PULSE 67
--- NOTE | 2025-01-12 13:29 | CA ---
Transthoracic Echo Report Name: Gricelda Kaur Age: 79 Gender: F : 1945 Exam Date: 01/12/2025 09:44 Exam Location: [facility] Ht (in): 64 Wt (lb): 183 Ordering Physician: Candy Moreno Attending/Referring Phys: [id number], Tiffanie Sap Portal Developer Ivett Velasquez RDCS Procedure CPT: Indications: post TAVR Cardiac Hx: Technical Quality: Good Contrast 1: Total Dose (mL): Contrast 2: Total Dose (mL): MEASUREMENTS (Male / Female) Normal Values 2D ECHO LV Diastolic Diameter PLAX 5.9 cm 4.2 - 5.9 / 3.9 - 5.3 cm LV Systolic Diameter PLAX 4.0 cm IVS Diastolic Thickness 0.9 cm 0.6 - 1.0 / 0.6 - 0.9 cm LVPW Diastolic Thickness 1.1 cm 0.6 - 1.0 / 0.6 - 0.9 cm LV Relative Wall Thickness 0.3 LVOT Diameter 2.3 cm LV Diastolic Volume MOD BP 179.7 cm??? 67 - 155 / 56 - 104 cm??? LV Systolic Volume MOD BP 72.0 cm??? 22 - 58 / 19 - 49 cm??? LV Ejection Fraction MOD BP 59.9 % >= 55 % LV Cardiac Index MOD BP 3781.5 cm???/min???m??? LV Diastolic Volume MOD 4C 165.9 cm??? LV Systolic Volume MOD 4C 58.8 cm??? LV Ejection Fraction MOD 4C 64.6 % LV Cardiac Index MOD 4C 3761.2 cm???/min???m??? LV Diastolic Length 4C 9.0 cm LV Systolic Length 4C 7.1 cm LV Diastolic Volume MOD 2C 188.4 cm??? LV Systolic Volume MOD 2C 79.8 cm??? LV Ejection Fraction MOD 2C 57.7 % LV Cardiac Index MOD 2C 3813.9 cm???/min???m??? LV Diastolic Length 2C 9.3 cm LV Systolic Length 2C 7.8 cm LA Volume 107.0 cm??? 18 - 58 / 22 - 52 cm??? LA Volume Index 54.5 cm???/m??? 16 - 28 cm???/m??? DOPPLER AV Peak Velocity 284.3 cm/s AV Peak Gradient 32.3 mmHg AV Mean Velocity 204.4 cm/s AV Mean Gradient 18.9 mmHg AV Velocity Time Integral 57.9 cm LVOT Peak Velocity 105.8 cm/s LVOT Peak Gradient 4.5 mmHg LVOT Velocity Time Integral 21.5 cm LVOT Stroke Volume 87.0 cm??? LVOT Stroke Volume Index 46.2 ml/m??? LVOT Cardiac Index 3054.4 cm???/min???m??? AV Area Cont Eq vti 1.5 cm??? AV Area Cont Eq pk 1.5 cm??? MV Area PHT 3.6 cm??? Mitral E Point Velocity 67.3 cm/s Mitral A Point Velocity 56.1 cm/s Mitral E to A Ratio 1.2 MV Deceleration Time 208.2 ms TR Peak Velocity 281.0 cm/s TR Peak Gradient 31.6 mmHg Right Atrial Pressure 5.0 mmHg Pulmonary Artery Systolic Pressu 36.6 mmHg Right Ventricular Systolic Press 36.6 mmHg PV Peak Velocity 93.1 cm/s PV Peak Gradient 3.5 mmHg FINDINGS Left Ventricle Left ventricular ejection fraction is estimated at 55-60 %. Normal left ventricular systolic function with no obvious regional wall motion abnormalities. Left ventricular cavity size normal. Right Ventricle Normal right ventricular size and function. Mild pulmonary hypertension. Right Atrium Mild right atrial dilatation. Left Atrium Severely increased left atrial volume. Mildly increased left atrial area. Mitral Valve Mitral valve thickened. No evidence for mitral valve prolapse. No mitral stenosis. mild mitral regurgitation.mitral annular calcification. Aortic Valve TAVR without stenosis with a peak velocity of 3.0 m/s, peak gradient 37 mmHg, mean gradient 22 mmHg, and estimated aortic valve area of 1.5cm???. Mild paravalvular aortic regurgitation. Tricuspid Valve Structurally normal tricuspid valve. No tricuspid stenosis. [id number] tricuspid regurgitation. Pulmonic Valve Structurally normal pulmonic valve. No pulmonic stenosis. Trace pulmonic regurgitation. Pericardium No pericardial effusion. Aorta Normal size aortic root and proximal ascending aorta. CONCLUSIONS 1. Normal left ventricular size and systolic function 2. TAVR with mild aortic regurgitation and a mean gradient of 22 mmHg 3. Mild mitral with mild to moderate tricuspid regurgitation and mild pulmonary hypertension Previewed by: Dr. Antonio Cruz MD (Electronically Signed) Final Date: 12 January 2025 13:28
[2025-01-12 13:46] VITALS: BMI 32.1
--- NOTE | 2025-01-12 23:00 | CONS ---
CONSULTATION CHIEF COMPLAINT: Congestive heart failure and aortic insufficiency. HISTORY OF PRESENT ILLNESS: This lady was brought in for elective TAVR. She has had a history of aortic insufficiency. REVIEW OF SYSTEMS: She has had some shortness of breath, but she has had no chest pain or syncope. Past medical history, family history, personal and social histories can be found in her initial workup. She has had a prior hip replacement and history of coronary artery disease with angioplasty and cardiomyopathy. MEDICATIONS: 1. Lasix 20 mg. 2. Lisinopril 2.5. 3. Carvedilol 3.125 twice a day. 4. Plavix 75 once a day. 5. Rosuvastatin 20 mg. 6. Aspirin 81 mg. 7. Xanax p.r.n. 8. Albuterol. The remainder of her history is essentially unremarkable and noncontributory. She has never smoked. PHYSICAL EXAMINATION: VITAL SIGNS: Normal. HEAD, EARS, EYES, NOSE, MOUTH, AND THROAT: Normal. CHEST: Clear. CARDIAC: Reveals a systolic murmur over the aortic area. There is no S3, or S4. ABDOMEN: Soft and nontender. EXTREMITIES: Normal. NEUROLOGICAL: She is intact. ASSESSMENT: She is admitted to the hospital with diagnoses of, 1. Aortic insufficiency. 2. History of coronary artery disease. RECOMMENDATIONS: None. Thank you respectfully, LAN / JS: [id number] /
--- NOTE | 2025-01-13 00:44 | PN ---
PROGRESS NOTE CHIEF COMPLAINT: Aortic valve replacement. HISTORY OF PRESENT ILLNESS: This lady is doing well and expects to go home today. She has had no shortness of breath, chest pain, etc. PHYSICAL EXAMINATION: CHEST: Clear. CARDIAC: Normal. ABDOMEN: Soft and nontender. IMPRESSION: Aortic insufficiency, status post transcatheter aortic valve replacement. PLAN: Home today. MMODL / IJN: [id number] /
[2025-01-13] MEDS ORDERED: FUROSEMIDE 20 MG TAB PO SCH (09:00)
--- NOTE | 2025-01-13 14:00 | P.DS ---
Providers Date of admission: 01/11/25 05:35 Expected date of discharge: 01/12/25 Attending physician: Lauro Rain Consults: 12/22/24 11:01 Consult to Anesthesia Routine Consulting Provider: Anesthesia,Services Consult Reason/Comments: Cardiac Surgery Pre-Op 01/11/25 08:30 Consult Physician Routine Consulting Provider: Orville Silverio Consult Reason/Comments: post TAVR Do you want consulting provider notified?: Already Contacted Primary care physician: Charli Rhodes Hospital Course: MEDICAL HISTORY: Calcified aortic valve with severe symptomatic aortic valve stenosis, NYHA II History of coronary artery disease with drug-eluting stent placed to the mid LAD November 03, 2024 Lifelong non-smoker Severe lung disease, FEV1 43% of predicted PROCEDURE: Percutaneous aortic valve implantation using a 26 mm Escoto DONNIE valve under KWABENA and fluoroscopy guidance Transesophageal echocardiography performed by anesthesia Ultrasound-guided access and repair of bilateral femoral artery access site by Perclose closure device on the right and Angio-Seal on the left Placement of temporary pacemaker wire Aortic root angiography HISTORY OF PRESENT ILLNESS: This is a 79-year-old female who follows on an outpatient basis with Dr. Rhodes for primary care and Dr. Zhu for cardiology. She has a known history of severe aortic stenosis and has been symptomatic with increased exertional dyspnea. She had been referred to structural heart clinic for evaluation for transcatheter aortic valve replacement after heart catheterization and transesophageal echocardiogram were completed. Echocardiography demonstrated reduced systolic function with EF 40%, peak/mean gradient 73/51 mmHg. Heart catheterization showed mild to moderate disease in the mid to distal circumflex as well as severe disease in the mid LAD and a drug-eluting stent was placed. After workup was completed STS risk score was calculated along with incremental risk and the patient was felt to be high risk for surgical aortic valve replacement, therefore transcatheter aortic valve replacement was recommended. The usual course of TAVR was discussed in detail the patient, risks and benefits were reviewed, shared decision making between cardiology, surgery, and the patient/family took place, and the patient consented to proceed with the procedure. HOSPITAL COURSE: The patient was brought to the hospital on 01/11/25, was taken to the extended stay area, prepared in the usual fashion, and subsequently taken to the cardiac catheterization laboratory where Dr. Rain and Dr. Silverio completed TAVR procedure under general anesthesia with fluoroscopy and KWABENA. The valve was deployed under rapid ventricular pacing and proceeded without event. At the end of the procedure there was no significant gradient, hemodynamics were felt to be acceptable, and there was no evidence of perivalvular leak. Upon completion of the procedure the patient was extubated and was transferred to the recovery room and eventually to 3 S. cardiac stepdown unit where she was recovered and monitored hemodynamically. Her oxygen was titrated down, she was tolerating oral diet, her pain was controlled, follow-up TTE demonstrated normal left ventricular systolic function with EF 55 to 60%, no aortic stenosis with mean gradient 22 mmHg and mild paravalvular regurgitation, and she was ready to be discharged to home on postoperative day #1. She received written and verbal instruction regarding her medications, activity restrictions, signs and symptoms requiring physician notification, and follow-up appointments. Patient Condition at Discharge: Stable Plan - Discharge Summary Discharge Rx Participant: No New Discharge Prescriptions: New Acetaminophen Tab [Tylenol] 650 mg PO Q4HR PRN tab PRN Reason: Fever And/ Or Mild Pain (1-3) Magnesium Hydroxide [Milk of Magnesia] 2,400 mg PO BID PRN ml PRN Reason: Constipation Sennosides-Docusate Sodium [Senokot-S] 2 each PO HS PRN tab PRN Reason: Constipation Continue Rosuvastatin Calcium 20 mg PO DAILY Furosemide [Lasix] 20 mg PO Q3D ALPRAZolam [Xanax] 0.25 mg PO BID PRN PRN Reason: Anxiety lisinopriL [Zestril] 2.5 mg PO DAILY Clopidogrel [Plavix] 75 mg PO DAILY Albuterol Inhaler [Ventolin Hfa Inhaler] 1 - 2 puff INHALATION Q6H PRN PRN Reason: Wheezing Aspirin 81 mg PO DAILY carvediloL [Coreg] 3.125 mg PO BID Discharge Medication List ALPRAZolam [Xanax] 0.25 mg PO BID PRN 10/27/24 [History] Albuterol Inhaler [Ventolin Hfa Inhaler] 1 - 2 puff INHALATION Q6H PRN 10/27/24 [History] Aspirin 81 mg PO DAILY 10/27/24 [History] Furosemide [Lasix] 20 mg PO Q3D 10/27/24 [History] Rosuvastatin Calcium 20 mg PO DAILY 10/27/24 [History] Clopidogrel [Plavix] 75 mg PO DAILY 12/20/24 [History] carvediloL [Coreg] 3.125 mg PO BID 12/20/24 [History] lisinopriL [Zestril] 2.5 mg PO DAILY 12/20/24 [History] Acetaminophen Tab [Tylenol] 650 mg PO Q4HR PRN tab 01/12/25 [Rx] Magnesium Hydroxide [Milk of Magnesia] 2,400 mg PO BID PRN ml 01/12/25 [Rx] Sennosides-Docusate Sodium [Senokot-S] 2 each PO HS PRN tab 01/12/25 [Rx] Follow up Appointment(s)/Referral(s): Erik Zhu MD [STAFF PHYSICIAN] - 01/19/25 10:45 am (Your appointment 01/19 is for a groin check with TAMMY Livingston. You also have 30 day post TAVR echo and appointment w/ Dr. Zhu 03/03/25 @ 9:45 am, and 1 year post TAVR echo and appointment w/ Dr. Zhu 01/10/26 @ 11 am (all at main office on [address])) Charli Rhodes MD [Primary Care Provider] - As Needed Clinic,Structural Heart [NON-STAFF] - 03/03/25 10:30 am (You have a 30 day follow up at the TAVR clinic 03/03/25 @ 10:30 am, and a 1 year follow up at the TAVR clinic 01/10/26 @ 10:30 am) Ambulatory/Diagnostic Orders: Basic Metabolic Panel [LAB.AMB] Location: None Selected Basic Metabolic Panel [LAB.AMB] Location: None Selected Complete Blood Count w/diff [LAB.AMB] Location: None Selected Complete Blood Count w/diff [LAB.AMB] Location: None Selected Activity/Diet/Wound Care/Special Instructions: DISCHARGE INSTRUCTIONS: 1. No driving for 1 week, or until physician gives their ok. 2. No lifting, pushing, or pulling more than 5-10 pounds for 1 week. 3. Hold both groins when you cough or sneeze for the next 2 weeks. Bruising is common, but report increased swelling, pain or fever >101F 4. Shower daily. No pool, hot tub, or bathtub for 1 week 5. No powders, lotions, ointments on incisions. 6. No straining, including for bowel movements. Use stool softner if necessary 7. Stairs are not an issue. Go slowly, using handrail and take 1 step at a time. Ambulate several times daily 8. Continue pain control per as needed orders. 9. Take only the medications listed on your discharge form 10. Eat low salt (limited to 2 grams or 2000 milligrams) daily, avoid adding salt, avoid canned/processed foods 11. Take your weight daily in the morning and record, bring with you to your follow up appointments 12. Keep all follow up appointments. You will need a valve clinic appointment at 30 days and 1 year post procedure for follow up 13. You have been referred to and are expected to begin Cardiac Rehab in approximately 4 weeks. 14. You will need antibiotics prior to any dental work, including cleanings, and any surgeries to prevent Endocarditis (bacterial infection in your heart) For any questions or concerns please call your valve coordinators: Candy or Kevin @ Discharge Disposition: HOME SELF-CARE
== END 2025-01-12 14:49 | disposition home or self-care (01) | DRG 267 ==
LOC: 2ORMAIN 01-11 05:35 → 3SCARD 01-11 14:55
PROVIDERS: ADMIT Internal Medicine Interventional Cardiology; ATTEND Internal Medicine Interventional Cardiology
PROC: B3101ZZ Fluoroscopy of Thoracic Aorta using Low Osmolar Contrast (ICD-10-PCS; 2025-01-11)
PROC: B246ZZZ Ultrasonography of Right and Left Heart (ICD-10-PCS; 2025-01-11)
PROC: 02RF38Z Replacement of Aortic Valve with Zooplastic Tissue, Percutaneous Approach (ICD-10-PCS; principal; 2025-01-11 08:00)
PROC: 5A1223Z Performance of Cardiac Pacing, Continuous (ICD-10-PCS; 2025-01-11 08:00)
DX: I35.0 Nonrheumatic aortic (valve) stenosis (principal); Z00.6 Encounter for examination for normal comparison and control in clinical research program; I50.32 Chronic diastolic (congestive) heart failure; E66.9 Obesity, unspecified; J44.9 Chronic obstructive pulmonary disease, unspecified; I08.1 Rheumatic disorders of both mitral and tricuspid valves; I25.10 Atherosclerotic heart disease of native coronary artery without angina pectoris; Z68.32 Body mass index [BMI] 32.0-32.9, adult; Z95.5 Presence of coronary angioplasty implant and graft
CPT/HCPCS: 71045; 80048; 80053; 83735; 85025; 85027; 86850; 86900; 86901; 93306

== ENCOUNTER → 2025-01-06 | Outpatient (CLI) | payer MEDICARE ==
[2025-01-06 15:41] LABS: Blood Urea Nitrogen 16.2 mg/dL (9.0-27.0); Calcium 9.6 mg/dL (8.7-10.3); Carbon Dioxide 26.5 mmol/L (21.6-31.8); Chloride 102 mmol/L (96-109); Glucose 111 mg/dL (70-110); Potassium 4.9 mmol/L (3.5-5.5); Sodium 138 mmol/L (135-145)
[2025-01-06 19:10] LABS: Basophils # (A) 0.05 X 10*3/uL (0.00-0.10); Basophils % (A) 0.5 %; Eosinophils # (A) 0.13 X 10*3/uL (0.04-0.35); Eosinophils % (A) 1.3 %; HCT 43.8 % (37.2-46.3); HGB 13.7 g/dL (12.0-15.0); Lymphocytes # (A) 1.69 X 10*3/uL (0.90-5.00); Lymphocytes % (A) 17.1 %; MCH 28.4 pg (27.0-32.0); MCHC 31.3 g/dL (32.0-37.0); MCV 90.7 FL (80.0-97.0); Mean Platelet Volume 10.1 FL (9.5-12.2); Monocytes # (A) 1.15 X 10*3/uL (0.20-1.00); Monocytes % (A) 11.6 %; NRBC Per 100 WBC 0 X 10*3/uL (0.00-0.01); Neutrophils # (A) 6.78 X 10*3/uL (1.80-7.70); Neutrophils % (A) 68.6 %; Platelet Count 366 X 10*3/uL (140-440); RBC 4.83 X 10*6/uL (4.10-5.20); RDW 13.9 % (11.5-14.5); WBC 9.89 X 10*3/uL (4.50-10.00)
== END | disposition home or self-care (01) ==
LOC: LABPAT 11:05
PROVIDERS: ATTEND Thoracic Surgery (Cardiothoracic Vascular Surgery)
DX: Z01.812 Encounter for preprocedural laboratory examination (principal); I35.0 Nonrheumatic aortic (valve) stenosis; Z79.899 Other long term (current) drug therapy
CPT/HCPCS: 36415; 80048; 85025; 86850; 86900; 86901

== ENCOUNTER → 2025-02-07 | Outpatient (CLI) | payer MEDICARE ==
[2025-02-07 12:14] LABS: Basophils # (A) 0.04 10*3/uL (0.00-0.10); Basophils % (A) 0.6 %; Eosinophils # (A) 0.18 10*3/uL (0.04-0.35); Eosinophils % (A) 2.5 %; HCT 40.4 % (37.2-46.3); HGB 12.7 g/dL (12.0-15.0); Lymphocytes # (A) 1.36 10*3/uL (0.90-5.00); Lymphocytes % (A) 19.2 %; MCH 28.7 pg (27.0-32.0); MCHC 31.4 g/dL (32.0-37.0); MCV 91.2 fL (80.0-97.0); Mean Platelet Volume 10.3 fL (9.5-12.2); Monocytes # (A) 0.67 10*3/uL (0.20-1.00); Monocytes % (A) 9.5 %; Neutrophils # (A) 4.81 10*3/uL (1.80-7.70); Neutrophils % (A) 67.9 %; Platelet Count 198 10*3/uL (140-440); RBC 4.43 10*6/uL (4.10-5.20); RDW 14.5 % (11.5-14.5); WBC 7.08 10*3/uL (4.50-10.00)
[2025-02-07 12:26] LABS: African American GFR (CKD) >90 (>60 ml/min/1.73 sqM); Anion Gap 4 mmol/L; Blood Urea Nitrogen 15 mg/dL (7-17); Calcium 9.4 mg/dL (8.4-10.2); Carbon Dioxide 31 mmol/L (22-30); Chloride 103 mmol/L (98-107); Glucose 105 mg/dL (74-99); Non-African American GFR(CKD) 90 (>60 ml/min/1.73 sqM); Potassium 4.7 mmol/L (3.5-5.1); Sodium 138 mmol/L (137-145)
== END | disposition home or self-care (01) ==
LOC: LABWHC1 11:33
PROVIDERS: ATTEND Nurse Practitioner Acute Care
DX: I35.0 Nonrheumatic aortic (valve) stenosis (principal)
CPT/HCPCS: 36415; 80048; 85025